=== PATIENT | male | born 1955 | race Caucasian/White ===

== ENCOUNTER 2018-02-11 19:04 | Emergency (ER) | payer MEDICAID ==
[~2018-02-11 19:04] MED LIST: ALBU8.5H4 IH; GUAI10SY2 PO; IBUP-1984 PO; NO HOME MEDS; ONDA4TAB59 PO; [UNRECOGNIZED DRUG - CODE] PO
== END 2018-02-11 21:48 | disposition left against medical advice (07) ==
LOC: ER 19:05
DX: M79.603 Pain in arm, unspecified (principal); Z53.21 Procedure and treatment not carried out due to patient leaving prior to being seen by health care provider